=== PATIENT | female | born 1980 | race American Indian/Alaskan Native ===

== ENCOUNTER 2016-09-08 07:30 | Outpatient (CLI) | payer BC ==
[2016-09-08] MEDS ORDERED: MARCAINE 0.25% INFILTRATI ONE (09:00)
[2016-09-08] MEDS ORDERED: DEPO-MEDROL INTRA-ARTI ONE (09:00)
--- NOTE | 2016-09-08 14:30 | Fluoroscopy Report ---
Right hip injection with fluoroscopic guidance. History: Hip pain. Procedure: The patient's skin surface overlying the right hip joint was prepped and draped using sterile technique. Local anesthetic was injected into the skin. Using fluoroscopic guidance, a 22-gauge spinal needle was placed into the right hip joint capsule. Initially, injection of 2 cc of Omnipaque 180 was performed to confirm the intracapsular location of the needle tip which was confirmed with a single image. Subsequently, a mixture of 5 cc of 0.25% Marcaine and 40 mg of Depo-Medrol was injected without difficulty. The patient tolerated the procedure well clinically.
== END 2016-09-08 07:31 | disposition home or self-care (01) ==
LOC: FLUORO 07:30
PROVIDERS: ATTEND Orthopaedic Surgery
DX: M25.551 Pain in right hip (principal)
CPT/HCPCS: 27093; 73525; J1030; Q9965